=== PATIENT | male | born 1955 | race Caucasian/White ===

== ENCOUNTER → 2017-08-03 | Outpatient (CLI) | payer OTHER ==
[~2017-08-03] MED LIST: FLOMAX0.4 MG PO; LISINOPRIL10 MG PO
== END ==
LOC: M.RAD 09:47
DX: E04.1 Nontoxic single thyroid nodule (principal)

== ENCOUNTER 2017-09-28 03:51 | Emergency (ER) | payer OTHER ==
[~2017-09-28] VITALS: Ht 167.6 cm; Wt 74.8 kg
[2017-09-28 03:56] VITALS: BP 120/72
== END 2017-09-28 04:15 | disposition home or self-care (01) ==
LOC: M.ERS 03:51
DX: S00.511A Abrasion of lip, initial encounter (principal); X58.XXXA Exposure to other specified factors, initial encounter; Y93.89 Activity, other specified; Y92.89 Other specified places as the place of occurrence of the external cause; Y99.8 Other external cause status

== ENCOUNTER 2017-11-04 06:22 | Emergency (ER) | payer OTHER ==
[~2017-11-04] VITALS: Ht 167.6 cm; Wt 72.6 kg
== END 2017-11-04 06:40 | disposition home or self-care (01) ==
LOC: M.ERS 06:22
DX: T16.2XXA Foreign body in left ear, initial encounter (principal); X58.XXXA Exposure to other specified factors, initial encounter; Y93.89 Activity, other specified; Y92.89 Other specified places as the place of occurrence of the external cause; Y99.8 Other external cause status

== ENCOUNTER 2019-02-20 08:13 | Emergency (ER) | payer OTHER ==
[~2019-02-20] VITALS: Ht 167.6 cm; Wt 70.3 kg
[2019-02-20] MEDS ORDERED: NORCO 5-325 TA1 EAC1 PO (09:08)
[2019-02-20] MEDS ORDERED: KEFLEX500 M1 PO (09:08)
[2019-02-20 09:55] VITALS: BP 132/70
== END 2019-02-20 09:57 | disposition home or self-care (01) ==
LOC: M.ERS 08:13
DX: S61.011A Laceration without foreign body of right thumb without damage to nail, initial encounter (principal); S61.411A Laceration without foreign body of right hand, initial encounter; W26.8XXA Contact with other sharp object(s), not elsewhere classified, initial encounter; Y93.89 Activity, other specified; Y92.89 Other specified places as the place of occurrence of the external cause; Y99.8 Other external cause status

== ENCOUNTER 2020-04-27 10:39 | Emergency (ER) | payer OTHER ==
[~2020-04-27] VITALS: Ht 167.6 cm; Wt 72.6 kg
[~2020-04-27 10:39] MED LIST changes: +KEFLEX500 M1 PO; +NORCO 5-325 TA1 EAC1 PO
[2020-04-27 12:00] VITALS: BP 143/90
== END 2020-04-27 12:00 | disposition home or self-care (01) ==
LOC: M.ERS 10:39
DX: T83.018A Breakdown (mechanical) of other urinary catheter, initial encounter (principal); Y84.6 Urinary catheterization as the cause of abnormal reaction of the patient, or of later complication, without mention of misadventure at the time of the procedure; Y92.89 Other specified places as the place of occurrence of the external cause

== ENCOUNTER 2020-07-12 17:42 | Observation (INO) | payer OTHER ==
[~2020-07-12] VITALS: Ht 167.6 cm; Wt 62.1 kg
[2020-07-12 17:51] VITALS: BP 143/87
[2020-07-12] MEDS ORDERED: VITAMIN C500 M1 PO (17:53)
[2020-07-12] MEDS ORDERED: TRELEGY ELLIPT1 EACH INH (17:54)
[2020-07-12] MEDS ORDERED: SYMBICORT160 MCG/4. INH (17:54)
[2020-07-12] MEDS ORDERED: PROAIR HFA8.5 GM INH (17:54)
[2020-07-12 18:10] LABS: ABSOLUTE BASOPHILS 0.2 thou/uL (0.0-0.2); ABSOLUTE EOSINOPHILS 0.2 thou/uL (0.0-0.7); ABSOLUTE LYMPHOCYTES 1.4 thou/uL (0.8-5.3); ABSOLUTE MONOCYTES 0.8 thou/uL (0.0-1.2); ABSOLUTE NEUTROPHILS 9.9 thou/uL (1.6-8.1); BASOPHILS 1.4 %; EOSINOPHILS 1.6 %; HEMATOCRIT 54.2 % (42.0-52.0); LYMPHOCYTES 11.2 %; MCH 28.5 pg (26.0-34.0); MCHC 33.3 g/dL (28.0-37.0); MCV 85.6 fL (80.0-100.0); MONOCYTES 6.7 %; MPV 7.4 fl. (7.2-11.1); NUCLEATED RBCS 0 /100WBC; PLATELET COUNT* 333 thou/uL (150-400); POLYS 79.1 %; RBC 6.33 mil/uL (4.50-6.00); WBC 12.6 thou/uL (4.0-11.0)
[2020-07-12 18:20] LABS: CREATININE 1.2 mg/dL (0.6-1.3); POTASSIUM 4.1 mmol/L (3.5-5.1)
[2020-07-12 18:21] LABS: APTT 30.8 Seconds (25.0-31.3); PROTIME 10.7 Seconds (9.20-11.50)
[2020-07-12 18:31] LABS: ALBUMIN 3.6 g/dL (3.4-5.0); MAGNESIUM 2.4 mg/dL (1.8-2.4); TOTAL BILIRUBIN 0.6 mg/dL (<0.1-1.0); TOTAL PROTEIN 7.7 g/dL (6.4-8.2)
[2020-07-12 20:08] VITALS: BP 131/86
[2020-07-12 22:08] VITALS: BP 139/81
[2020-07-13 04:29] VITALS: BP 120/76
[2020-07-13 08:00] VITALS: BP 118/75
[2020-07-13] MEDS ORDERED: DOXYCYCLINE 10100 MG PO (10:18)
[2020-07-13] MEDS ORDERED: PREDNISONE 20 M20 MG PO (10:18)
[2020-07-13 10:41] VITALS: BP 118/75
--- NOTE | 2020-07-13 13:41 | EKG ---
[place] [address] ELECTROCARDIOGRAM REPORT Name: TOMY WHEAT Room: [address]R.#: [id number] Admission: 07/12/20 Attend Phys: Jorge Morgan, Discharge: Date of : 55 Date of Service: 07/12/20 1748 Report #: [id number] THIS REPORT FOR: //name// [facility] ED Test Date: 2020-07-12 Test Time: 17:48:00 Pat Name: TOMY WHEAT Department: Room: [facility] Gender: M Boat Master: LUX : 1955 Requested By: Juan Miranda Order Number: [id number] MD: Isra Zavala Measurements Intervals [place] Rate: 94 P: 62 WY: 226 QRS: 139 QRSD: 93 T: 31 QT: 342 QTc: 428 Interpretive Statements Sinus rhythm Prolonged [place] interval Right axis deviation No previous ECG available for comparison Electronically Signed On 07-13-2020 13:41:49 TRAINING DEVELOPMENT SPECIALIST by Isra Zavala [email or web address] <ELECTRONICALLY SIGNED> By: Isra Zavala MD, [facility] 07/13/20 1341 1748 174 Isra Zavala MD, [facility] /EPI
[2020-07-13 13:45] VITALS: BP 126/80
[2020-07-13 15:40] VITALS: BP 118/75
[2020-07-13 15:59] VITALS: BP 118/75
== END 2020-07-13 16:24 | disposition home or self-care (01) ==
LOC: M.ERS 17:42 → M.2W 18:39 → M.TBA-ER 18:39 → M.2W 20:12
PROVIDERS: Emergency Medicine Emergency Medical Services; ADMIT Internal Medicine; ATTEND Internal Medicine
DX: J96.21 Acute and chronic respiratory failure with hypoxia (principal); J44.9 Chronic obstructive pulmonary disease, unspecified; R79.89 Other specified abnormal findings of blood chemistry; R42 Dizziness and giddiness; R00.0 Tachycardia, unspecified; Z20.822 Contact with and (suspected) exposure to COVID-19; Z87.448 Personal history of other diseases of urinary system

== ENCOUNTER 2021-02-28 16:49 | Emergency (ER) | payer OTHER ==
[~2021-02-28] VITALS: Ht 167.6 cm; Wt 68.0 kg
[~2021-02-28 16:49] MED LIST changes: +DOXYCYCLINE 10100 MG PO; +PREDNISONE 20 M20 MG PO; +PROAIR HFA8.5 GM INH; +SYMBICORT160 MCG/4. INH; +TRELEGY ELLIPT1 EACH INH; +VITAMIN C500 M1 PO
[2021-02-28] MEDS ORDERED: CEPHALEXIN500 MG PO (18:45)
[2021-02-28 19:08] VITALS: BP 112/74
== END 2021-02-28 19:09 | disposition home or self-care (01) ==
LOC: M.ERS 16:49
DX: S01.81XA Laceration without foreign body of other part of head, initial encounter (principal); J44.9 Chronic obstructive pulmonary disease, unspecified; Z79.2 Long term (current) use of antibiotics; Z79.899 Other long term (current) drug therapy; W18.09XA Striking against other object with subsequent fall, initial encounter; Y93.89 Activity, other specified; Y92.89 Other specified places as the place of occurrence of the external cause; Y99.8 Other external cause status